=== PATIENT | female | born 1945 | race Caucasian/White ===

== ENCOUNTER 2017-11-26 08:13 | Outpatient (CLI) | payer MEDICARE, OTHER ==
[2017-11-26] MEDS ORDERED: REGADENOSON 0.4 MG/5 ML DISP.SYRIN IVP ONE (09:30)
== END 2017-11-26 23:59 | disposition home or self-care (01) ==
LOC: NM 08:13
PROVIDERS: ATTEND Internal Medicine Interventional Cardiology
DX: R07.9 Chest pain, unspecified (principal); I10 Essential (primary) hypertension
CPT/HCPCS: 78452; A9502; J2785